=== PATIENT | female | born 1975 | race Asian ===

== ENCOUNTER 2018-12-31 10:17 | Emergency (ER) | payer OTHER ==
[~2018-12-31] VITALS: Ht 165.1 cm; Wt 73.0 kg
[~2018-12-31 10:17] MED LIST: MECL-77 PO; ONDA4TAB14 PO
[2018-12-31 10:18] VITALS: BP 143/88; PULSE 83; RESP 20; Ht 165.1 cm; Wt 73.0 kg
[2018-12-31] MEDS ORDERED: SOD CHLORIDE 0.9% 1,000 ML IV STA (10:37)
[2018-12-31] MEDS ORDERED: ONDANSETRON 4 MG INJ IV STA (10:37)
[2018-12-31] MEDS ORDERED: MECLIZINE 12.5 MG TAB PO ONE (11:00)
--- NOTE | 2018-12-31 12:11 | ERD ---
ER Documentation Chief Complaint Chief Complaint HIGH BP; DIZZINESS STARTED 8 AM TODAY HPI 43-year-old female presents with dizziness that began this morning around 8 AM. She states it feels like the room is spinning and is worse when she goes from laying down to sitting up. She does have a history of migraines but this time denies any headache. No vomiting. Has not taken any medication for her symptoms. She is concerned she may have elevated blood pressure although she denies any history of hypertension. ROS All systems reviewed and are negative except as per history of present illness. Medications Home Meds Active Scripts Ondansetron (Ondansetron Odt) 4 Mg Tab.rapdis, 4 MG PO Q6H PRN for NAUSEA AND/OR VOMITING, #20 TAB Prov:BOSTON ANGEL PA-C 12/31/18 Meclizine Hcl* (Meclizine Hcl*) 25 Mg Tablet, 25 MG PO Q8H PRN for DIZZINESS, #20 TAB Prov:BOSTON ANGEL PA-C 12/31/18 PMhx/Soc History of Surgery: Yes (C SECTION X 3) Anesthesia Reaction: No Hx Miscellaneous Medical Probl: Yes (MIGRAINE HEADACHE,HYPOTHYROIDISM) Hx Alcohol Use: No Hx Substance Use: No Hx Tobacco Use: No Smoking Status: Never smoker FmHx Family History: No diabetes Physical Exam Vitals Vital Signs Date Temp Pulse Resp B/P (MAP) Pulse Ox O2 O2 Flow FiO2 Time Delivery Rate 12/31/18 97.7 83 20 143/88 99 10:18 (106) Physical Exam INITIAL VITAL SIGNS: Reviewed by me GENERAL: Awake, alert and oriented x 4, well appearing, nontoxic, speaking in full sentences. No acute distress HEAD: Atraumatic NECK: Supple. No masses. Full range of motion. No meningismus. No midline tenderness. EYES: EOMI. PERRL. RESPIRATORY: Clear to auscultation bilaterally. Symmetric chest wall rise. No wheezing or rales. No accessory muscle use. CV: Regular rate and rhythm. No murmurs, rubs, or gallops. NEUROLOGIC: Normal mental status and speech. Face is symmetric. Moves all extremities equally. Motor and sensory distally intact. Normal coordination. Ambulates with a strong steady gait. Result Diagram: 12/31/18 1046 12/31/18 1046 Results 24 hrs Laboratory Tests Test 12/31/18 10:46 12/31/18 10:49 White Blood Count 9.7 10^3/ul Red Blood Count 4.83 10^6/ul Hemoglobin 13.0 g/dl Hematocrit 41.1 % Mean Corpuscular Volume 85.1 fl Mean Corpuscular Hemoglobin 26.9 pg Mean Corpuscular Hemoglobin Concent 31.6 g/dl Red Cell Distribution Width 13.9 % Platelet Count 239 10^3/UL Mean Platelet Volume 10.2 fl Immature Granulocytes % 0.300 % Neutrophils % 56.3 % Lymphocytes % 29.9 % Monocytes % 4.7 % Eosinophils % 7.7 % Basophils % 1.1 % Nucleated Red Blood Cells % 0.0 /100WBC Immature Granulocytes # 0.030 10^3/ul Neutrophils # 5.5 10^3/ul Lymphocytes # 2.9 10^3/ul Monocytes # 0.5 10^3/ul Eosinophils # 0.8 10^3/ul Basophils # 0.1 10^3/ul Nucleated Red Blood Cells # 0.0 10^3/ul Urine Color COLORLESS Urine Clarity CLEAR Urine pH 6.0 Urine Specific [place] 1.003 Urine Ketones NEGATIVE mg/dL Urine Nitrite NEGATIVE mg/dL Urine Bilirubin NEGATIVE mg/dL Urine Urobilinogen NEGATIVE mg/dL Urine Leukocyte Esterase NEGATIVE Brenda/ul Urine Microscopic RBC 0 /HPF Urine Microscopic WBC 0 /HPF Urine Bacteria FEW /HPF Urine Hemoglobin 1+ mg/dL Urine Glucose NEGATIVE mg/dL Urine Total Protein NEGATIVE mg/dl Sodium Level 142 mmol/L Potassium Level 3.6 mmol/L Chloride Level 107 mmol/L Carbon Dioxide Level 24 mmol/L Anion Gap 11 Blood Urea Nitrogen 11 mg/dl Creatinine 0.80 mg/dl Est Glomerular Filtrat Rate mL/min > 60 mL/min Glucose Level 83 mg/dl Calcium Level 9.6 mg/dl Total Bilirubin 0.3 mg/dl Direct Bilirubin 0.00 mg/dl Indirect Bilirubin 0.3 mg/dl Aspartate Amino Transf (AST/SGOT) 24 IU/L Alanine Aminotransferase (ALT/SGPT) 18 IU/L Alkaline Phosphatase 38 IU/L Total Protein 7.8 g/dl Albumin 4.3 g/dl Globulin 3.50 g/dl Albumin/Globulin Ratio 1.22 POC Beta HCG, Qualitative NEGATIVE Current Medications Medications Dose Sig/Keren Start Time Status Last (Trade) Ordered Route PRN Stop Time Admin Dose Reason Admin Sodium 1,000 ml @ Q1H STAT 12/31/18 DC 12/31/18 Chloride 1,000 mls/hr IV 10:37 10:52 12/31/18 11:36 Ondansetron 4 mg ONCE STAT 12/31/18 DC 12/31/18 HCl (Zofran IV 10:37 10:52 Inj) 12/31/18 10:40 Meclizine 50 mg ONCE ONCE 12/31/18 DC 12/31/18 HCl PO 11:00 10:52 (Antivert) 12/31/18 11:01 Procedures/MDM Patient presents with dizziness. Labs are normal. CT scan is negative. She felt better after IV fluids Zofran and meclizine. Patient counseled regarding my diagnostic impression and care plan. Prior to discharge all questions answered. Pt agrees with treatment plan and understands strict return precauti ons. Pt is instructed to follow up with primary care provider within 24-48 hours. Precautionary instructions provided including instructions to return to the ER if not improving or for any worsening or changing symptoms or concerns. Departure Diagnosis: Primary Impression: Dizziness Condition: Stable Patient Instructions: Dizziness, Unk Cause Additional Instructions: Call your primary care doctor TOMORROW for an appointment during the next 1-2 days.See the doctor sooner or return here if your condition worsens before your appointment time. BOSTON ANGEL PA-C Dec 31, 2018 12:11
== END 2018-12-31 12:19 | disposition home or self-care (01) ==
LOC: FTE 10:17
DX: R42 Dizziness and giddiness (principal)
CPT/HCPCS: 36415; 70450; 80053; 81001; 81025; 85025; 96361; 96374; 99285; J2405; J7030